=== PATIENT | female | born 1965 | race Caucasian/White ===

== ENCOUNTER 2016-10-11 03:21 | Emergency (ER) | payer SELFPAY ==
[~2016-10-11] VITALS: Ht 170.2 cm; Wt 73.0 kg
[2016-10-11 03:23] VITALS: BP 142/76
== END 2016-10-11 05:00 | disposition left against medical advice (07) ==
LOC: ER 03:22
DX: F41.9 Anxiety disorder, unspecified (principal); Z53.21 Procedure and treatment not carried out due to patient leaving prior to being seen by health care provider